=== PATIENT | male | born 1935 | race Caucasian/White ===

== ENCOUNTER 2023-06-05 10:44 | Outpatient (CLI) | payer MEDICARE | END 2023-06-05 10:45 | disposition home or self-care (01) | LOC: CSHCP 10:44 | PROVIDERS: ATTEND Internal Medicine Critical Care Medicine | DX: J44.1 Chronic obstructive pulmonary disease with (acute) exacerbation (principal) | CPT/HCPCS: 94060; 94726; 94729; 94760 ==

== ENCOUNTER 2023-08-28 20:58 | Inpatient (IN) | payer MEDICARE, OTHER ==
[2023-08-28 21:35] VITALS: BMI 24.4
[2023-08-28 23:09] LABS: Troponin I 0.039 ng/mL (< 0.028)
[2023-08-28] MEDS ORDERED: Nitroglycerin 0.4 MG TAB (25 Tab Bottle) SL PRN (23:59)
[2023-08-29 02:58] LABS: #Eosinphils 0.2 10x3/uL (0.0-0.5); #Monocytes 0.6 10x3/uL (0.0-1.1); #Neutrophils 3.6 10x3/uL (1.5-8.4); %Basophils 0.6 % (0.0-2.0); %Eosinophils 3.2 % (0.0-6.0); %Lymphocytes 17.1 % (18.0-47.0); %Monocytes 10.8 % (0.0-10.0); %Neutrophils 68.1 % (40.0-75.0); Hematocrit 36.5 % (38.8-50.0); Hemoglobin 11.5 g/dL (13.5-17.5); Mean Corpuscular HGB CONC 31.5 g/dL (32.0-36.0); Mean Corpuscular Volume 92.2 fl (81.2-95.1); Platelet Count 124 10x3/uL (150-450); RBC Distribution Width 14.5 % (11.5-14.5); Red Blood Cell (RBC) Count 3.96 10x6/uL (4.32-5.72); White Blood Cell (WBC) Count 5.3 10x3/uL (3.5-10.5)
[2023-08-29] MEDS: Aspirin 325 MG TAB PO SCH (02:58)
[2023-08-29 03:03] LABS: Anion Gap 9 mmol/L (10-20); BUN (Urea Nitrogen) 19 mg/dL (8.4-25.7); Calc. Creatinine Clearance 66 mL/min (70-130); Calcium 9.5 mg/dL (7.8-10.44); Carbon Dioxide 33 mmol/L (23-31); Cardiac Risk 2.6 (Less than 4.5); Chloride 100 mmol/L (98-107); Cholesterol 136 mg/dl (< 200 Desired); Estimated GFR 82; Glucose 110 mg/dL (83-110); HDL Cholesterol 52 mg/dL (>60 Neg Risk); LDL Cholesterol, Calculated 76 mg/dL; Potassium 4.2 mmol/L (3.5-5.1); Sodium 138 mmol/L (136-145); Triglycerides 40 mg/dL (Less than 150)
[2023-08-29] MEDS ORDERED: Albuterol 2.5 MG (3 mL) NEB NEB PRN (08:33)
[2023-08-29] MEDS ORDERED: Acetaminophen 325 MG TAB PO PRN (08:33)
[2023-08-29] MEDS ORDERED: Ondansetron PF 4 MG/2 ML Vial IVP PRN (08:33)
[2023-08-29] MEDS ORDERED: Ipratropium/Albuterol 3 ML NEB NEB PRN (08:35)
[2023-08-29] MEDS: Aspirin Chewable 81 MG TAB PO SCH (10:22)
[2023-08-29] MEDS: Enoxaparin 40 MG (0.4 mL) SYRINGE SC SCH (10:22)
[2023-08-29] MEDS: Famotidine/PF 20 mg/2ml Vial SLOW IVP SCH (10:22)
[2023-08-29 12:58] VITALS: TEMP 97.6
[2023-08-29] MEDS: Ipratropium/Albuterol 3 ML NEB NEB SCH (16:38)
[2023-08-29 17:54] VITALS: BP 155/74
[2023-08-29] MEDS ORDERED: Atorvastatin Calcium 40 MG TAB PO SCH (21:00)
== END 2023-08-29 19:15 | disposition home or self-care (01) | DRG 313 ==
LOC: INTOOBSV 20:58 → CSHTELE 20:58 → OBSVTOIN 08-29 14:08
PROVIDERS: ADMIT Family Medicine; ATTEND Family Medicine
DX: R07.9 Chest pain, unspecified (principal); I42.9 Cardiomyopathy, unspecified; I50.32 Chronic diastolic (congestive) heart failure; I48.21 Permanent atrial fibrillation; G47.33 Obstructive sleep apnea (adult) (pediatric); J45.909 Unspecified asthma, uncomplicated; R82.71 Bacteriuria; I49.5 Sick sinus syndrome; I11.0 Hypertensive heart disease with heart failure; J98.6 Disorders of diaphragm; Z79.899 Other long term (current) drug therapy; Z98.890 Other specified postprocedural states; Z95.0 Presence of cardiac pacemaker; Z79.51 Long term (current) use of inhaled steroids
CPT/HCPCS: 36415; 71045; 80048; 80061; 83735; 84484; 85025; 93005; 93010; 93306; 94760; 96372; 96374; G0378; J1650; S0028